=== PATIENT | male | born 1960 | race Caucasian/White ===

== ENCOUNTER 2021-08-03 14:51 | Inpatient (IN) ==
[2021-08-03 15:43] LABS: Basophils % 0.6 %; Eosinophils # 0.1 K/mcL (0.0-0.6); Hematocrit 32.5 % (37.5-50.1); Hemoglobin 10.9 g/dL (12.9-16.9); Immature Granulocytes % 0.4 % (0-4); Lymphocytes # 0.8 K/mcL (0.6-4.6); Lymphocytes % 11.9 %; Mean Corpuscular HGB Conc 33.5 g/dL (31.6-35.5); Mean Corpuscular Hemoglobin 35.2 pg (28.0-33.3); Mean Corpuscular Volume 104.8 fL (83.0-100.0); Mean Platelet Volume 11.2 fL (9.4-12.4); Monocytes # 0.9 K/mcL (0.0-1.3); Monocytes % 12.6 %; Platelet Count 122 K/mcL (140-400); Red Cell Distribution Width 14.4 % (11.5-14.5); Segmented Neutrophils % 73.5 %; White Blood Count 6.8 K/mcL (4.3-11.1)
[2021-08-03 15:55] LABS: INR 1.4; Prothrombin Time 15.8 Seconds (9.4-12.1)
[2021-08-03 15:57] LABS: Activated Partial Thrombo Time 31.7 Seconds (26.0-36.0)
[2021-08-03 16:21] LABS: Troponin I < 0.03 ng/mL (< 0.04)
[2021-08-03 16:25] LABS: Influenza A PCR Negative (Negative); Influenza B PCR Negative (Negative); Resp. Syncytial Virus PCR Negative (Negative); SARS-CoV-2 by PCR (In House) Negative (Negative)
[2021-08-03 16:35] LABS: Alanine Aminotransferase 46 Units/L (7-52); Albumin/Globulin Ratio 0.9 (1.1-2.2); Alkaline Phosphatase 149 Units/L (34-104); Aspartate Amino Transferase 73 Units/L (13-39); BUN/Creatinine Ratio 18 (6-26); Bilirubin,Direct 0.7 mg/dL (0.0-0.2); Bilirubin,Indirect 1.7 mg/dL (0.0-1.0); Bilirubin,Total 2.4 mg/dL (0.3-1.0); Blood Urea Nitrogen 14 mg/dL (8-23); Calcium 8.4 mg/dL (8.6-10.3); Carbon Dioxide 30 mEq/L (23-29); Chloride 104 mEq/L (98-107); Globulin 3.3 g/dL (2.4-3.5); Glucose 104 mg/dL (70-105); Osmolality,Calculated 287 (280-300); Potassium 4.2 mEq/L (3.5-5.1); Sodium 138 mEq/L (136-145); Total Protein 6.3 g/dL (6.4-8.9); eGFR For African Americans > 60 (> 60); eGFR For Non-African Americans > 60 (> 60)
[2021-08-03 16:42] LABS: Lipase 65 Units/L (11-82)
[2021-08-03] MEDS ORDERED: Isovue-370 500 ML BOTTLE IVP ONE (16:50)
[2021-08-03] MEDS ORDERED: Morphine Sulfate 2 MG/ML SYRINGE IVP ONE (17:09)
[2021-08-03] MEDS ORDERED: Albuterol 2.5 MG/3 ML NEBULIZER IH ONE (18:02)
[2021-08-03] MEDS ORDERED: cefTRIAXone 1,000 MG in Water for inj. (sterile) 10 ML IVP ONE (18:26)
[2021-08-03] MEDS ORDERED: Naloxone 0.4 MG/ML INJ IVP PRN (20:22)
[2021-08-03] MEDS ORDERED: Ondansetron 4 MG/2 ML VIAL IVP PRN (20:28)
[2021-08-03] MEDS ORDERED: Melatonin 3 MG TABLET PO PRN (20:28)
[2021-08-03] MEDS ORDERED: Furosemide 40 MG/4 ML VIAL IVP ONE (22:29)
[2021-08-03] MEDS ORDERED: Albumin 25% 25gram/100mL 25 GM/100 ML IV.SOLN IVPB ONE (22:29)
[2021-08-03] MEDS ORDERED: *HR* LORazepam 2 MG/ML VIAL IVP PRN (22:48)
[2021-08-03] MEDS: cefTRIAXone 2,000 MG in 0.9 % Sodium Chloride Mini Bag 100 ML IVPB SCH (22:57)
[2021-08-03] MEDS ORDERED: Perflutren Lipid Microsphere 1.3 ML in 0.9 % Sodium Chloride 8.7 ML IVP PRN (23:19)
[2021-08-04 02:52] LABS: Basophils # 0.1 K/mcL (0.0-0.2); Basophils % 0.8 %; Eosinophils # 0.1 K/mcL (0.0-0.6); Eosinophils % 1.8 %; Hematocrit 27.1 % (37.5-50.1); Immature Granulocytes % 0.2 % (0-4); Lymphocytes # 0.8 K/mcL (0.6-4.6); Lymphocytes % 13.6 %; Mean Corpuscular HGB Conc 33.6 g/dL (31.6-35.5); Mean Corpuscular Volume 104.2 fL (83.0-100.0); Mean Platelet Volume 11.3 fL (9.4-12.4); Monocytes # 1.1 K/mcL (0.0-1.3); Monocytes % 18.2 %; Platelet Count 100 K/mcL (140-400); Red Cell Distribution Width 14.5 % (11.5-14.5); Segmented Neutrophils % 65.4 %
[2021-08-04 02:54] LABS: Hemoglobin 9.1 g/dL (12.9-16.9); Neutrophils # 3.9 K/mcL (1.6-8.9)
[2021-08-04 03:04] LABS: BUN/Creatinine Ratio 17 (6-26); Blood Urea Nitrogen 14 mg/dL (8-23); Calcium 8.4 mg/dL (8.6-10.3); Carbon Dioxide 28 mEq/L (23-29); Chloride 103 mEq/L (98-107); Glucose 126 mg/dL (70-105); Osmolality,Calculated 282 (280-300); Potassium 3.9 mEq/L (3.5-5.1); Sodium 135 mEq/L (136-145); eGFR For African Americans > 60 (> 60); eGFR For Non-African Americans > 60 (> 60)
[2021-08-04] MEDS: cefTRIAXone 2,000 MG in 0.9 % Sodium Chloride Mini Bag 100 ML IVPB SCH (08:13)
[2021-08-04 09:44] LABS: Alanine Aminotransferase 33 Units/L (7-52); Albumin/Globulin Ratio 1.1 (1.1-2.2); Alkaline Phosphatase 116 Units/L (34-104); Aspartate Amino Transferase 56 Units/L (13-39); Bilirubin,Direct 0.7 mg/dL (0.0-0.2); Bilirubin,Indirect 1.4 mg/dL (0.0-1.0); Bilirubin,Total 2.1 mg/dL (0.3-1.0); Globulin 2.7 g/dL (2.4-3.5); Total Protein 5.7 g/dL (6.4-8.9)
[2021-08-04] MEDS ORDERED: Gadolinium Contrast Agent (WT Based) IV PRN (12:17)
[2021-08-04] MEDS ORDERED: *HR* LORazepam 2 MG/ML VIAL IVP PRN ×2 (14:32)
[2021-08-04 15:26] LABS: Source of Body Fluid Ascites
[2021-08-04 17:04] LABS: LDH,Peritoneal Fluid 54 Units/L (No Ref Range); Total Protein,Peritoneal Fluid < 2.0 g/dL
[2021-08-04 17:18] LABS: Appearance of Body Fluid Clear (Clear); Volume of Body Fluid 60 mL
[2021-08-04] MEDS ORDERED: Thiamine (B-1) 100 MG, Folic Acid 1 MG, MVI, adult with vitamin K 10 ML in 0.9 % Sodi... IVPB SCH (18:00)
[2021-08-05 05:47] LABS: Basophils % 0.7 %; Mean Platelet Volume 11.4 fL (9.4-12.4)
[2021-08-05 05:49] LABS: Eosinophils # 0.1 K/mcL (0.0-0.6); Eosinophils % 2.4 %; Hemoglobin 9.7 g/dL (12.9-16.9); Immature Granulocytes % 0.3 % (0-4); Immature Platelets 4.8 % (1.1-6.1); Lymphocytes # 0.9 K/mcL (0.6-4.6); Lymphocytes % 15.5 %; Mean Corpuscular HGB Conc 33.4 g/dL (31.6-35.5); Mean Corpuscular Hemoglobin 35.4 pg (28.0-33.3); Mean Corpuscular Volume 105.8 fL (83.0-100.0); Monocytes # 0.9 K/mcL (0.0-1.3); Monocytes % 15.7 %; Neutrophils # 3.9 K/mcL (1.6-8.9); Red Blood Count 2.74 M/mcL (4.19-5.50); Red Cell Distribution Width 14.1 % (11.5-14.5); Segmented Neutrophils % 65.4 %; White Blood Count 5.9 K/mcL (4.3-11.1)
[2021-08-05 05:58] LABS: Platelet Count 95 K/mcL (140-400)
[2021-08-05 06:14] LABS: Alanine Aminotransferase 34 Units/L (7-52); Albumin 2.8 g/dL (3.5-5.7); Alkaline Phosphatase 121 Units/L (34-104); Aspartate Amino Transferase 67 Units/L (13-39); BUN/Creatinine Ratio 18 (6-26); Bilirubin,Direct 0.6 mg/dL (0.0-0.2); Bilirubin,Indirect 1.2 mg/dL (0.0-1.0); Bilirubin,Total 1.8 mg/dL (0.3-1.0); Blood Urea Nitrogen 15 mg/dL (8-23); Calcium 8.2 mg/dL (8.6-10.3); Carbon Dioxide 25 mEq/L (23-29); Chloride 102 mEq/L (98-107); Globulin 2.9 g/dL (2.4-3.5); Glucose 100 mg/dL (70-105); Osmolality,Calculated 277 (280-300); Potassium 4.1 mEq/L (3.5-5.1); Sodium 133 mEq/L (136-145); Total Protein 5.7 g/dL (6.4-8.9); eGFR For African Americans > 60 (> 60); eGFR For Non-African Americans > 60 (> 60)
[2021-08-05] MEDS ORDERED: Furosemide 40 MG/4 ML VIAL IVP ONE ×2 (09:19→16:00)
[2021-08-05] MEDS: Albumin 25% 25gram/100mL 25 GM/100 ML IV.SOLN IVPB SCH ×2 (10:50→17:02)
[2021-08-05] MEDS: cefTRIAXone 2,000 MG in 0.9 % Sodium Chloride Mini Bag 100 ML IVPB SCH (11:02)
[2021-08-05] MEDS: Tiotropium 10 INH DOSE IH SCH (11:25)
[2021-08-05] MEDS: Budesonide/Formoterol 160/4.5 1 PUFF INH IH SCH (22:28)
[2021-08-06 02:23] LABS: Hematocrit 27.9 % (37.5-50.1); Hemoglobin 9.4 g/dL (12.9-16.9); Mean Corpuscular HGB Conc 33.7 g/dL (31.6-35.5); Mean Corpuscular Hemoglobin 35.1 pg (28.0-33.3); Mean Corpuscular Volume 104.1 fL (83.0-100.0); Mean Platelet Volume 11.4 fL (9.4-12.4); Platelet Count 74 K/mcL (140-400); Red Blood Count 2.68 M/mcL (4.19-5.50); Red Cell Distribution Width 13.8 % (11.5-14.5)
[2021-08-06 02:30] LABS: BUN/Creatinine Ratio 21 (6-26); Blood Urea Nitrogen 16 mg/dL (8-23); Calcium 8.4 mg/dL (8.6-10.3); Carbon Dioxide 28 mEq/L (23-29); Chloride 98 mEq/L (98-107); Glucose 110 mg/dL (70-105); Osmolality,Calculated 268 (280-300); Potassium 3.8 mEq/L (3.5-5.1); Sodium 128 mEq/L (136-145); eGFR For African Americans > 60 (> 60); eGFR For Non-African Americans > 60 (> 60)
[2021-08-06] MEDS: Albumin 25% 25gram/100mL 25 GM/100 ML IV.SOLN IVPB SCH ×3 (06:52→16:41)
[2021-08-06] MEDS: Budesonide/Formoterol 160/4.5 1 PUFF INH IH SCH ×2 (08:17→20:31)
[2021-08-06] MEDS: Tiotropium 10 INH DOSE IH SCH (08:19)
[2021-08-06] MEDS: polyethylene glycoL 3350 17 GM POWD.PACK PO SCH (16:43)
[2021-08-06 21:45] LABS: Fluid Source for Albumin ASCITES
[2021-08-07] MEDS: Albumin 25% 25gram/100mL 25 GM/100 ML IV.SOLN IVPB SCH ×2 (00:32→08:38)
[2021-08-07 02:07] LABS: Immature Granulocytes % 0.2 % (0-4)
[2021-08-07 02:10] LABS: BUN/Creatinine Ratio 20 (6-26); Basophils % 0.9 %; Blood Urea Nitrogen 15 mg/dL (8-23); Calcium 8.4 mg/dL (8.6-10.3); Carbon Dioxide 26 mEq/L (23-29); Chloride 100 mEq/L (98-107); Eosinophils # 0.1 K/mcL (0.0-0.6); Eosinophils % 2.1 %; Glucose 128 mg/dL (70-105); Hematocrit 26.7 % (37.5-50.1); Hemoglobin 8.8 g/dL (12.9-16.9); Immature Platelets 5.4 % (1.1-6.1); Lymphocytes # 0.7 K/mcL (0.6-4.6); Lymphocytes % 15.4 %; Mean Corpuscular Hemoglobin 34.8 pg (28.0-33.3); Mean Corpuscular Volume 105.5 fL (83.0-100.0); Mean Platelet Volume 11.9 fL (9.4-12.4); Monocytes % 17.7 %; Neutrophils # 2.7 K/mcL (1.6-8.9); Osmolality,Calculated 276 (280-300); Potassium 3.9 mEq/L (3.5-5.1); Red Blood Count 2.53 M/mcL (4.19-5.50); Red Cell Distribution Width 13.9 % (11.5-14.5); Segmented Neutrophils % 63.7 %; Sodium 132 mEq/L (136-145); White Blood Count 4.2 K/mcL (4.3-11.1); eGFR For African Americans > 60 (> 60); eGFR For Non-African Americans > 60 (> 60)
[2021-08-07 02:13] LABS: Monocytes # 0.7 K/mcL (0.0-1.3); Platelet Count 61 K/mcL (140-400)
[2021-08-07] MEDS: polyethylene glycoL 3350 17 GM POWD.PACK PO SCH (08:39)
[2021-08-07] MEDS: Tiotropium 10 INH DOSE IH SCH (09:10)
[2021-08-07] MEDS: Budesonide/Formoterol 160/4.5 1 PUFF INH IH SCH (09:10)
[2021-08-07 09:12] VITALS: O2SAT 97
[2021-08-07 11:18] VITALS: BP 129/80; PULSE 89; TEMP 99.4
== END 2021-08-07 12:25 | disposition home or self-care (01) | DRG 433 ==
LOC: EMEROOARM 14:51 → 3ANU 14:51 → SUATTDRO 08-05 12:24
PROVIDERS: ADMIT Internal Medicine; ATTEND Internal Medicine

== ENCOUNTER 2021-10-08 11:01 | Inpatient (IN) ==
[2021-10-08 11:34] LABS: Basophils # 0.1 K/mcL (0.0-0.2); Basophils % 0.7 %; Eosinophils # 0.1 K/mcL (0.0-0.6); Eosinophils % 0.8 %; Hematocrit 31.7 % (37.5-50.1); Hemoglobin 10.6 g/dL (12.9-16.9); Immature Granulocytes % 0.3 % (0-4); Lymphocytes # 0.9 K/mcL (0.6-4.6); Lymphocytes % 9.8 %; Mean Corpuscular HGB Conc 33.4 g/dL (31.6-35.5); Mean Corpuscular Hemoglobin 34.5 pg (28.0-33.3); Mean Corpuscular Volume 103.3 fL (83.0-100.0); Mean Platelet Volume 10.3 fL (9.4-12.4); Monocytes # 1.1 K/mcL (0.0-1.3); Monocytes % 11.9 %; Platelet Count 146 K/mcL (140-400); Red Blood Count 3.07 M/mcL (4.19-5.50); Red Cell Distribution Width 18.2 % (11.5-14.5); Segmented Neutrophils % 76.5 %; White Blood Count 9.2 K/mcL (4.3-11.1)
[2021-10-08 11:59] LABS: Alanine Aminotransferase 64 Units/L (7-52); Albumin 2.9 g/dL (3.5-5.7); Albumin/Globulin Ratio 0.7 (1.1-2.2); Alkaline Phosphatase 209 Units/L (34-104); Aspartate Amino Transferase 164 Units/L (13-39); BUN/Creatinine Ratio 15 (6-26); Bilirubin,Direct 1.7 mg/dL (0.0-0.2); Bilirubin,Indirect 2.5 mg/dL (0.0-1.0); Bilirubin,Total 4.2 mg/dL (0.3-1.0); Blood Urea Nitrogen 12 mg/dL (8-23); Calcium 8.6 mg/dL (8.6-10.3); Carbon Dioxide 25 mEq/L (23-29); Chloride 99 mEq/L (98-107); Globulin 4.1 g/dL (2.4-3.5); Glucose 111 mg/dL (70-105); Lipase 27 Units/L (11-82); Osmolality,Calculated 270 (280-300); Potassium 4.4 mEq/L (3.5-5.1); Sodium 130 mEq/L (136-145); Troponin I 0.03 ng/mL (< 0.04); eGFR For African Americans > 60 (> 60); eGFR For Non-African Americans > 60 (> 60)
[2021-10-08] MEDS ORDERED: Ondansetron ODT 4 MG TAB.RAPDIS SL PRN (14:09)
[2021-10-08] MEDS ORDERED: Naloxone 0.4 MG/ML INJ IVP PRN (14:09)
[2021-10-08] MEDS ORDERED: Melatonin 3 MG TABLET PO PRN (14:09)
[2021-10-08] MEDS ORDERED: Ibuprofen 400 MG TABLET PO PRN (16:02)
[2021-10-08] MEDS: Albumin 25% 25gram/100mL 25 GM/100 ML IV.SOLN IVC SCH ×4 (16:47→22:42)
[2021-10-08 17:47] LABS: Ethanol < 10 mg/dL (Less than 10)
[2021-10-08] MEDS ORDERED: *HR* Labetalol 20 MG/4 ML SYRINGE IVP PRN (20:12)
[2021-10-08] MEDS ORDERED: *HR* HYDROmorphone 2 MG TABLET PO ONE (20:30)
[2021-10-08] MEDS: *HR* Heparin 5,000 UNIT/ML VIAL SQ SCH (20:53)
[2021-10-08] MEDS: Budesonide/Formoterol 160/4.5 1 PUFF INH IH SCH (20:56)
[2021-10-09 02:46] LABS: Alanine Aminotransferase 44 Units/L (7-52); Albumin 3.3 g/dL (3.5-5.7); Albumin/Globulin Ratio 1.2 (1.1-2.2); Alkaline Phosphatase 151 Units/L (34-104); Aspartate Amino Transferase 117 Units/L (13-39); BUN/Creatinine Ratio 18 (6-26); Bilirubin,Total 3.6 mg/dL (0.3-1.0); Blood Urea Nitrogen 14 mg/dL (8-23); Calcium 8.5 mg/dL (8.6-10.3); Carbon Dioxide 27 mEq/L (23-29); Chloride 99 mEq/L (98-107); Globulin 2.7 g/dL (2.4-3.5); Glucose 104 mg/dL (70-105); Osmolality,Calculated 273 (280-300); Potassium 4.5 mEq/L (3.5-5.1); Sodium 131 mEq/L (136-145); eGFR For African Americans > 60 (> 60); eGFR For Non-African Americans > 60 (> 60)
[2021-10-09] MEDS: *HR* Heparin 5,000 UNIT/ML VIAL SQ SCH ×3 (05:23→20:38)
[2021-10-09] MEDS: Budesonide/Formoterol 160/4.5 1 PUFF INH IH SCH ×2 (07:28→20:08)
[2021-10-09] MEDS ORDERED: Tiotropium 10 INH DOSE IH ONE (07:31)
[2021-10-09] MEDS: Tiotropium 10 INH DOSE IH SCH (07:32)
[2021-10-09] MEDS ORDERED: Furosemide 40 MG/4 ML VIAL IVP SCH (09:00)
[2021-10-09] MEDS ORDERED: Acetaminophen 325 MG TABLET PO PRN (09:30)
[2021-10-09] MEDS: Ketorolac 30 MG/ML VIAL IM PRN ×3 (09:43→22:36)
[2021-10-09] MEDS: Furosemide 80 MG in 0.9 % Sodium Chloride 50 ML IV SCH (20:38)
[2021-10-10 01:14] LABS: BUN/Creatinine Ratio 17 (6-26); Blood Urea Nitrogen 20 mg/dL (8-23); Calcium 8.1 mg/dL (8.6-10.3); Carbon Dioxide 25 mEq/L (23-29); Chloride 97 mEq/L (98-107); Glucose 116 mg/dL (70-105); Osmolality,Calculated 272 (280-300); Sodium 129 mEq/L (136-145); eGFR For African Americans > 60 (> 60); eGFR For Non-African Americans > 60 (> 60)
[2021-10-10] MEDS: Ketorolac 30 MG/ML VIAL IM PRN ×3 (04:38→16:44)
[2021-10-10] MEDS: *HR* Heparin 5,000 UNIT/ML VIAL SQ SCH ×3 (04:39→19:49)
[2021-10-10] MEDS: Budesonide/Formoterol 160/4.5 1 PUFF INH IH SCH ×2 (07:51→20:32)
[2021-10-10] MEDS: Tiotropium 10 INH DOSE IH SCH (07:51)
[2021-10-10] MEDS: Furosemide 80 MG in 0.9 % Sodium Chloride 50 ML IV SCH ×2 (09:18→19:48)
[2021-10-10] MEDS ORDERED: Ondansetron 4 MG/2 ML VIAL IVP PRN (09:23)
[2021-10-10 20:56] LABS: Basophils % 0.3 %; Eosinophils # 0.1 K/mcL (0.0-0.6); Eosinophils % 0.8 %; Hemoglobin 9.9 g/dL (12.9-16.9); Immature Granulocytes % 0.4 % (0-4); Lymphocytes # 1.1 K/mcL (0.6-4.6); Lymphocytes % 9.6 %; Mean Corpuscular HGB Conc 34.1 g/dL (31.6-35.5); Mean Corpuscular Hemoglobin 34.5 pg (28.0-33.3); Mean Platelet Volume 10.5 fL (9.4-12.4); Monocytes # 1.6 K/mcL (0.0-1.3); Neutrophils # 8.5 K/mcL (1.6-8.9); Platelet Count 132 K/mcL (140-400); Red Blood Count 2.87 M/mcL (4.19-5.50); Red Cell Distribution Width 18.4 % (11.5-14.5); Segmented Neutrophils % 74.9 %; White Blood Count 11.4 K/mcL (4.3-11.1)
[2021-10-10 21:20] LABS: Albumin 2.9 g/dL (3.5-5.7); Albumin/Globulin Ratio 1.1 (1.1-2.2); Bilirubin,Direct 1.6 mg/dL (0.0-0.2); Bilirubin,Indirect 2.5 mg/dL (0.0-1.0); Bilirubin,Total 4.1 mg/dL (0.3-1.0); Globulin 2.7 g/dL (2.4-3.5); Total Protein 5.6 g/dL (6.4-8.9)
[2021-10-10] MEDS ORDERED: Lactulose Oral Soln 20 GM/30 ML UDC PO ONE (21:29)
[2021-10-10] MEDS ORDERED: Lactulose 200 GM, Sodium Chloride IRRigation 700 ML RC ONE (22:21)
[2021-10-10 22:39] LABS: Bacteria,Urine Few per hpf (None-Few); Bilirubin,Urine Negative (Negative); Blood,Urine Large (Negative); Clarity,Urine Turbid (Clear); Color,Urine Light-Orange (Yellow); Glucose,Urine (UA) Normal (Normal); Hyaline Casts,Urine Few per lpf (None Seen); Ketones,Urine Negative (Negative); Leukocyte Esterase,Urine Large (Negative); Mucus,Urine Few per lpf (None-Few); Nitrite,Urine Negative (Negative); Oval Fat Bodies,Urine Present per hpf (None Seen); Protein,Urine 30 mg/dL (Neg-Trace); RBC,Urine TNTC per hpf (0-3); Renal Epithelial Cells,Urine Few per hpf (None-Few); Specific Gravity,Urine 1.008 (1.010-1.025); Squamous Epithelial Cell,Urine Few per hpf (None-Few); Transitional Epi Cells,Urine Few per hpf (None-Few); Urobilinogen,Urine Normal (Normal); WBC,Urine TNTC per hpf (0-3)
[2021-10-11] MEDS ORDERED: Albumin 25% 25gram/100mL 25 GM/100 ML IV.SOLN IVPB ONE ×2 (00:49→18:07)
[2021-10-11] MEDS ORDERED: *HR* LORazepam 2 MG/ML VIAL IVP ONE (00:51)
[2021-10-11] MEDS: cefTRIAXone 1,000 MG in 0.9 % Sodium Chloride 10 ML IVPB SCH ×2 (01:08→13:16)
[2021-10-11] MEDS ORDERED: Dexmedetomidine HCl 400 MCG/100 ML MLS IVC SCH ×2 (01:45→02:00)
[2021-10-11] MEDS ORDERED: Lactulose 200 GM, Sodium Chloride IRRigation 700 ML RC ONE ×2 (02:00→23:00)
[2021-10-11] MEDS: Dexmedetomidine HCl 400 MCG/100 ML MLS IVC SCH ×6 (02:05→23:14)
[2021-10-11 02:41] LABS: Potassium 4.5 mEq/L (3.5-5.1)
[2021-10-11 02:42] LABS: Calcium 8.5 mg/dL (8.6-10.3)
[2021-10-11 05:13] LABS: Lymphocytes % 8.7 %; Mean Corpuscular HGB Conc 35.4 g/dL (31.6-35.5); Red Cell Distribution Width 18.5 % (11.5-14.5)
[2021-10-11 05:15] LABS: Basophils % 0.1 %; Eosinophils % 0.1 %; Hematocrit 24.3 % (37.5-50.1); Hemoglobin 8.6 g/dL (12.9-16.9); Immature Granulocytes % 0.4 % (0-4); Immature Platelets 3.3 % (1.1-6.1); Lymphocytes # 0.6 K/mcL (0.6-4.6); Mean Corpuscular Volume 101.7 fL (83.0-100.0); Mean Platelet Volume 10.8 fL (9.4-12.4); Monocytes # 0.9 K/mcL (0.0-1.3); Monocytes % 13.6 %; Red Blood Count 2.39 M/mcL (4.19-5.50); Segmented Neutrophils % 77.1 %; White Blood Count 6.7 K/mcL (4.3-11.1)
[2021-10-11 05:22] LABS: INR 2.4; Prothrombin Time 26.4 Seconds (9.4-12.1)
[2021-10-11 05:23] LABS: Neutrophils # 5.2 K/mcL (1.6-8.9); Platelet Count 94 K/mcL (140-400)
[2021-10-11] MEDS: *HR* Heparin 5,000 UNIT/ML VIAL SQ SCH ×3 (06:13→23:15)
[2021-10-11] MEDS ORDERED: Albumin 25% 25gram/100mL 25 GM/100 ML IV.SOLN IVPB SCH (08:00)
[2021-10-11] MEDS: Tiotropium 10 INH DOSE IH SCH (08:21)
[2021-10-11] MEDS: Budesonide/Formoterol 160/4.5 1 PUFF INH IH SCH ×2 (08:21→20:02)
[2021-10-11 09:05] LABS: Hematocrit 27.5 % (37.5-50.1); Hemoglobin 9.7 g/dL (12.9-16.9); Mean Corpuscular HGB Conc 35.3 g/dL (31.6-35.5); Mean Corpuscular Hemoglobin 35.3 pg (28.0-33.3); Mean Platelet Volume 10.9 fL (9.4-12.4); Platelet Count 105 K/mcL (140-400); Red Blood Count 2.75 M/mcL (4.19-5.50); Red Cell Distribution Width 18.6 % (11.5-14.5); White Blood Count 6.6 K/mcL (4.3-11.1)
[2021-10-11] MEDS ORDERED: 0.9 % Sodium Chloride 500 ML ONE (09:53)
[2021-10-11] MEDS ORDERED: 0.9 % Sodium Chloride 500 ML IVC ONE (09:53)
[2021-10-11] MEDS: Pantoprazole 40 MG VIAL IVP SCH (09:56)
[2021-10-11] MEDS: Furosemide 80 MG in 0.9 % Sodium Chloride 50 ML IV SCH (10:31)
[2021-10-11] MEDS: Lactulose Oral Soln 20 GM/30 ML UDC PO SCH ×3 (10:32→20:25)
[2021-10-11] MEDS: 0.9 % Sodium Chloride 1,000 ML IVC SCH ×2 (17:21→23:41)
[2021-10-11] MEDS: Norepinephrine 4 MG/254 ML IV.SOLN IVC SCH (17:48)
[2021-10-11 18:21] LABS: RBC,Peritoneal Fluid < 2000 RBC/mcL
[2021-10-11 18:24] LABS: Appearance of Peritoneal Fl CLEAR (Clear)
[2021-10-11 18:30] LABS: Glucose,Peritoneal Fluid 107 mg/dL (No Ref Range); LDH,Peritoneal Fluid 143 Units/L (No Ref Range); Total Protein,Peritoneal Fluid < 2.0 g/dL
[2021-10-11 19:39] LABS: Basophils,Peritoneal Fluid 0 %
[2021-10-12] MEDS: Dexmedetomidine HCl 400 MCG/100 ML MLS IVC SCH ×5 (01:52→22:52)
[2021-10-12] MEDS: Norepinephrine 4 MG/254 ML IV.SOLN IVC SCH ×3 (01:52→17:12)
[2021-10-12] MEDS: cefTRIAXone 1,000 MG in 0.9 % Sodium Chloride 10 ML IVPB SCH ×2 (01:56→12:13)
[2021-10-12] MEDS: Albumin 25% 25gram/100mL 25 GM/100 ML IV.SOLN IVPB SCH ×2 (03:08→08:25)
[2021-10-12 06:04] LABS: Hematocrit 29.8 % (37.5-50.1); Hemoglobin 10.1 g/dL (12.9-16.9); Mean Corpuscular HGB Conc 33.9 g/dL (31.6-35.5); Mean Corpuscular Hemoglobin 34.8 pg (28.0-33.3); Mean Corpuscular Volume 102.8 fL (83.0-100.0); Mean Platelet Volume 10.5 fL (9.4-12.4); Platelet Count 111 K/mcL (140-400); Red Cell Distribution Width 18.9 % (11.5-14.5); White Blood Count 9.5 K/mcL (4.3-11.1)
[2021-10-12 06:22] LABS: INR 2.4; Prothrombin Time 26.3 Seconds (9.4-12.1)
[2021-10-12 06:25] LABS: Activated Partial Thrombo Time 47.7 Seconds (26.0-36.0)
[2021-10-12 07:14] LABS: Lymphocytes # 0.8 K/mcL (0.6-4.6); Monocytes # 0.6 K/mcL (0.0-1.3); Neutrophils # 8.2 K/mcL (1.6-8.9); Platelet Estimate Decreased (Normal)
[2021-10-12] MEDS ORDERED: *HR* Phytonadione 10 MG/ML AMPUL SQ ONE (08:14)
[2021-10-12] MEDS: Budesonide/Formoterol 160/4.5 1 PUFF INH IH SCH ×2 (08:19→19:42)
[2021-10-12] MEDS: Tiotropium 10 INH DOSE IH SCH (08:20)
[2021-10-12] MEDS: Pantoprazole 40 MG VIAL IVP SCH (08:30)
[2021-10-12] MEDS: Lactulose Oral Soln 20 GM/30 ML UDC PO SCH ×3 (08:30→20:32)
[2021-10-12] MEDS: *HR* Heparin 5,000 UNIT/ML VIAL SQ SCH ×3 (08:30→20:31)
[2021-10-12 10:05] LABS: Albumin 3.4 g/dL (3.5-5.7); Albumin/Globulin Ratio 1.4 (1.1-2.2); Bilirubin,Total 4.1 mg/dL (0.3-1.0); Calcium 8.3 mg/dL (8.6-10.3); Globulin 2.5 g/dL (2.4-3.5); Potassium 4.1 mEq/L (3.5-5.1); Total Protein 5.9 g/dL (6.4-8.9)
[2021-10-12] MEDS ORDERED: 0.9 % Sodium Chloride 500 ML IVC ONE (17:33)
[2021-10-13] MEDS ORDERED: Haloperidol Lactate 5 MG/ML VIAL IVP ONE (00:18)
[2021-10-13] MEDS: Pantoprazole 40 MG in 0.9 % Sodium Chloride Mini Bag 100 ML IVC SCH ×3 (01:13→11:06)
[2021-10-13] MEDS: Dexmedetomidine HCl 400 MCG/100 ML MLS IVC SCH ×5 (01:16→23:17)
[2021-10-13] MEDS: cefTRIAXone 1,000 MG in 0.9 % Sodium Chloride 10 ML IVPB SCH (01:17)
[2021-10-13] MEDS ORDERED: *HR* LORazepam 2 MG/ML VIAL IVP PRN ×3 (04:39)
[2021-10-13 05:08] LABS: Bilirubin,Total 2.9 mg/dL (0.3-1.0); Calcium 8.3 mg/dL (8.6-10.3); Potassium 4.2 mEq/L (3.5-5.1)
[2021-10-13] MEDS: *HR* Heparin 5,000 UNIT/ML VIAL SQ SCH ×3 (05:49→20:52)
[2021-10-13] MEDS: Tiotropium 10 INH DOSE IH SCH (07:32)
[2021-10-13] MEDS: Budesonide/Formoterol 160/4.5 1 PUFF INH IH SCH ×2 (07:32→20:53)
[2021-10-13] MEDS: Lactulose Oral Soln 20 GM/30 ML UDC PO SCH (08:28)
[2021-10-13] MEDS: Thiamine (B-1) 200 MG in 0.9 % Sodium Chloride 50 ML IVPB SCH (08:28)
[2021-10-13] MEDS: Folic Acid 1 MG in 0.9 % Sodium Chloride 50 ML IVPB SCH (08:28)
[2021-10-13] MEDS: Norepinephrine 4 MG/254 ML IV.SOLN IVC SCH ×3 (08:29→19:18)
[2021-10-13 10:12] LABS: Basophils % 0.1 %; Eosinophils % 0.5 %; Hematocrit 29.5 % (37.5-50.1); Immature Granulocytes % 0.7 % (0-4); Lymphocytes # 0.8 K/mcL (0.6-4.6); Lymphocytes % 10.4 %; Mean Corpuscular HGB Conc 33.9 g/dL (31.6-35.5); Mean Corpuscular Hemoglobin 34.5 pg (28.0-33.3); Mean Corpuscular Volume 101.7 fL (83.0-100.0); Monocytes # 1.2 K/mcL (0.0-1.3); Monocytes % 15.9 %; Neutrophils # 5.5 K/mcL (1.6-8.9); Platelet Count 113 K/mcL (140-400); Red Cell Distribution Width 18.6 % (11.5-14.5); Segmented Neutrophils % 72.4 %; White Blood Count 7.6 K/mcL (4.3-11.1)
[2021-10-13 10:33] LABS: Albumin 3.2 g/dL (3.5-5.7); Albumin/Globulin Ratio 1.2 (1.1-2.2); Bilirubin,Direct 1.4 mg/dL (0.0-0.2); Bilirubin,Indirect 1.4 mg/dL (0.0-1.0); Bilirubin,Total 2.8 mg/dL (0.3-1.0); Calcium 8.3 mg/dL (8.6-10.3); Globulin 2.7 g/dL (2.4-3.5); Potassium 4.2 mEq/L (3.5-5.1); Total Protein 5.9 g/dL (6.4-8.9)
[2021-10-13] MEDS: Cefepime HCl 2,000 MG in 0.9 % Sodium Chloride 10 ML IVP SCH ×2 (11:06→20:52)
[2021-10-13] MEDS: Albumin Human 5% 12.5 GM/250 ML IV.SOLN IVC SCH ×2 (13:12→17:09)
[2021-10-13] MEDS: MetroNIDAZOLE 500 MG/100 ML 500 MG/100 ML BAG IVPB SCH ×2 (15:48→23:16)
[2021-10-13 16:15] LABS: INR 1.9; Prothrombin Time 21.5 Seconds (9.4-12.1)
[2021-10-13] MEDS: Pantoprazole 40 MG VIAL IVP SCH (17:10)
[2021-10-13 23:46] LABS: Fluid Source for Albumin PERITONEAL FL
[2021-10-14 02:54] LABS: Calcium 8.6 mg/dL (8.6-10.3); Potassium 3.3 mEq/L (3.5-5.1)
[2021-10-14] MEDS: Pantoprazole 40 MG VIAL IVP SCH ×2 (04:40→17:13)
[2021-10-14] MEDS: *HR* Heparin 5,000 UNIT/ML VIAL SQ SCH ×3 (04:41→21:40)
[2021-10-14] MEDS: Norepinephrine 4 MG/254 ML IV.SOLN IVC SCH ×3 (04:41→21:41)
[2021-10-14 04:47] LABS: Fluid Source for Triglycerides PERITONEAL FL
[2021-10-14 05:12] LABS: Nucleated Red Blood Cells 0.2 /100 WBC (0)
[2021-10-14 05:14] LABS: Hematocrit 27.7 % (37.5-50.1); Hemoglobin 9.2 g/dL (12.9-16.9); Immature Platelets 5.1 % (1.1-6.1); Mean Corpuscular HGB Conc 33.2 g/dL (31.6-35.5); Mean Corpuscular Hemoglobin 34.3 pg (28.0-33.3); Mean Corpuscular Volume 103.4 fL (83.0-100.0); Mean Platelet Volume 10.9 fL (9.4-12.4); Red Blood Count 2.68 M/mcL (4.19-5.50); White Blood Count 8.2 K/mcL (4.3-11.1)
[2021-10-14 05:19] LABS: Platelet Count 80 K/mcL (140-400)
[2021-10-14 05:55] LABS: Lymphocytes # 1.2 K/mcL (0.6-4.6); Monocytes # 0.8 K/mcL (0.0-1.3); Neutrophils # 6.2 K/mcL (1.6-8.9)
[2021-10-14] MEDS ORDERED: Potassium Chloride Elixir 20 MEQ/15 ML UDC GTUBE ONE (07:54)
[2021-10-14] MEDS: Folic Acid 1 MG in 0.9 % Sodium Chloride 50 ML IVPB SCH (08:02)
[2021-10-14] MEDS: MetroNIDAZOLE 500 MG/100 ML 500 MG/100 ML BAG IVPB SCH ×3 (08:03→23:14)
[2021-10-14] MEDS: Thiamine (B-1) 200 MG in 0.9 % Sodium Chloride 50 ML IVPB SCH (08:03)
[2021-10-14] MEDS: Budesonide/Formoterol 160/4.5 1 PUFF INH IH SCH ×2 (09:41→20:09)
[2021-10-14] MEDS: Tiotropium 10 INH DOSE IH SCH (09:41)
[2021-10-14] MEDS: Cefepime HCl 1,000 MG in 0.9 % Sodium Chloride 10 ML IVP SCH ×2 (10:26→17:13)
[2021-10-14] MEDS: Dexmedetomidine HCl 400 MCG/100 ML MLS IVC SCH ×3 (10:27→20:34)
[2021-10-14 11:00] LABS: Triglycerides,Body Fluid 31 mg/dL
[2021-10-14 15:48] LABS: RBC,Peritoneal Fluid < 2000 RBC/mcL
[2021-10-14 17:02] LABS: Appearance of Peritoneal Fl CLEAR (Clear); Basophils,Peritoneal Fluid 0 %; Eosinophils,Peritoneal Fluid 0 %
[2021-10-14] MEDS: Lactulose Oral Soln 20 GM/30 ML UDC PO SCH (20:24)
[2021-10-14] MEDS: Docusate Oral Soln 100 MG/10 ML UDC GTUBE SCH (20:37)
[2021-10-15] MEDS: Dexmedetomidine HCl 400 MCG/100 ML MLS IVC SCH ×4 (00:44→15:50)
[2021-10-15 04:33] LABS: Basophils % 0.4 %; Eosinophils % 0.4 %; Hemoglobin 9.8 g/dL (12.9-16.9); Immature Granulocytes % 1.2 % (0-4); Immature Platelets 3.9 % (1.1-6.1); Lymphocytes # 0.8 K/mcL (0.6-4.6); Lymphocytes % 9.5 %; Mean Corpuscular HGB Conc 32.7 g/dL (31.6-35.5); Mean Corpuscular Hemoglobin 34.3 pg (28.0-33.3); Mean Corpuscular Volume 104.9 fL (83.0-100.0); Mean Platelet Volume 10.7 fL (9.4-12.4); Monocytes # 1.3 K/mcL (0.0-1.3); Monocytes % 15.9 %; Red Blood Count 2.86 M/mcL (4.19-5.50); Red Cell Distribution Width 18.6 % (11.5-14.5); Segmented Neutrophils % 72.6 %; White Blood Count 8.2 K/mcL (4.3-11.1)
[2021-10-15 04:33] LABS: VBG Ionized Calcium 1.16 mmol/L (1.15-1.35)
[2021-10-15 04:43] LABS: Platelet Count 82 K/mcL (140-400)
[2021-10-15 04:50] LABS: Alanine Aminotransferase 38 Units/L (7-52); Albumin 2.7 g/dL (3.5-5.7); Albumin/Globulin Ratio 0.9 (1.1-2.2); Alkaline Phosphatase 113 Units/L (34-104); Aspartate Amino Transferase 81 Units/L (13-39); BUN/Creatinine Ratio 44 (6-26); Bilirubin,Total 2.9 mg/dL (0.3-1.0); Blood Urea Nitrogen 54 mg/dL (8-23); Calcium 8.3 mg/dL (8.6-10.3); Carbon Dioxide 25 mEq/L (23-29); Chloride 112 mEq/L (98-107); Globulin 2.9 g/dL (2.4-3.5); Glucose 127 mg/dL (70-105); Magnesium 2.6 mg/dL (1.6-2.6); Osmolality,Calculated 310 (280-300); Phosphorous 2.6 mg/dL (2.7-4.5); Potassium 3.9 mEq/L (3.5-5.1); Sodium 142 mEq/L (136-145); Total Protein 5.6 g/dL (6.4-8.9); eGFR For African Americans > 60 (> 60); eGFR For Non-African Americans 59 (> 60)
[2021-10-15] MEDS: Cefepime HCl 1,000 MG in 0.9 % Sodium Chloride 10 ML IVP SCH (05:16)
[2021-10-15] MEDS: *HR* Heparin 5,000 UNIT/ML VIAL SQ SCH ×3 (05:16→20:10)
[2021-10-15] MEDS: Pantoprazole 40 MG VIAL IVP SCH ×2 (05:17→17:33)
[2021-10-15] MEDS: Lactulose Oral Soln 20 GM/30 ML UDC PO SCH ×2 (07:25→19:16)
[2021-10-15] MEDS: Docusate Oral Soln 100 MG/10 ML UDC GTUBE SCH ×2 (07:25→19:16)
[2021-10-15] MEDS: Budesonide/Formoterol 160/4.5 1 PUFF INH IH SCH ×2 (07:25→23:17)
[2021-10-15] MEDS: Thiamine (B-1) 200 MG in 0.9 % Sodium Chloride 50 ML IVPB SCH (07:26)
[2021-10-15] MEDS: Tiotropium 10 INH DOSE IH SCH (07:26)
[2021-10-15] MEDS: MetroNIDAZOLE 500 MG/100 ML 500 MG/100 ML BAG IVPB SCH ×3 (07:26→23:38)
[2021-10-15] MEDS: Folic Acid 1 MG in 0.9 % Sodium Chloride 50 ML IVPB SCH (07:27)
[2021-10-15] MEDS: Cefepime HCl 2,000 MG in 0.9 % Sodium Chloride 10 ML IVP SCH (17:34)
[2021-10-15] MEDS: Norepinephrine 4 MG/254 ML IV.SOLN IVC SCH (20:10)
[2021-10-16] MEDS: Dexmedetomidine HCl 400 MCG/100 ML MLS IVC SCH ×5 (01:12→20:46)
[2021-10-16] MEDS: *HR* Heparin 5,000 UNIT/ML VIAL SQ SCH ×3 (05:23→19:52)
[2021-10-16] MEDS: Cefepime HCl 2,000 MG in 0.9 % Sodium Chloride 10 ML IVP SCH ×2 (05:23→17:48)
[2021-10-16] MEDS: Pantoprazole 40 MG VIAL IVP SCH ×2 (05:23→17:48)
[2021-10-16 06:51] LABS: HCV Quant Interpretation NOT DETECTED (Not Detected); HCV Quant Log NOT DETECTED log IU/mL
[2021-10-16] MEDS: Budesonide/Formoterol 160/4.5 1 PUFF INH IH SCH ×2 (07:39→20:07)
[2021-10-16] MEDS: Tiotropium 10 INH DOSE IH SCH (07:41)
[2021-10-16] MEDS: Docusate Oral Soln 100 MG/10 ML UDC GTUBE SCH ×2 (08:35→19:51)
[2021-10-16] MEDS: Lactulose Oral Soln 20 GM/30 ML UDC PO SCH ×2 (08:35→19:51)
[2021-10-16] MEDS: MetroNIDAZOLE 500 MG/100 ML 500 MG/100 ML BAG IVPB SCH ×3 (08:35→23:24)
[2021-10-16] MEDS ORDERED: *HR* Dextrose 50 % in Water (Syg) 50 ML SYRINGE IVP PRN (10:33)
[2021-10-16] MEDS ORDERED: Dextrose Gel 15 GM/37.5 ML TUBE PO PRN ×2 (10:33)
[2021-10-16] MEDS ORDERED: D5% in Water 1,000 ML IVC PRN (10:33)
[2021-10-16 10:53] LABS: Basophils % 0.4 %; Segmented Neutrophils % 68.9 %
[2021-10-16 10:54] LABS: Eosinophils % 0.8 %; Hematocrit 32.7 % (37.5-50.1); Hemoglobin 10.7 g/dL (12.9-16.9); Immature Granulocytes % 1.6 % (0-4); Immature Platelets 5.2 % (1.1-6.1); Lymphocytes % 12.2 %; Mean Corpuscular HGB Conc 32.7 g/dL (31.6-35.5); Mean Corpuscular Hemoglobin 34.3 pg (28.0-33.3); Mean Corpuscular Volume 104.8 fL (83.0-100.0); Mean Platelet Volume 10.9 fL (9.4-12.4); Monocytes % 16.1 %; Red Blood Count 3.12 M/mcL (4.19-5.50); Red Cell Distribution Width 18.5 % (11.5-14.5); White Blood Count 10.4 K/mcL (4.3-11.1)
[2021-10-16 10:55] LABS: Eosinophils # 0.1 K/mcL (0.0-0.6); Lymphocytes # 1.3 K/mcL (0.6-4.6); Monocytes # 1.7 K/mcL (0.0-1.3); Neutrophils # 7.2 K/mcL (1.6-8.9); Platelet Count 88 K/mcL (140-400)
[2021-10-16 11:16] LABS: Magnesium 2.7 mg/dL (1.6-2.6); Phosphorous 2.8 mg/dL (2.7-4.5)
[2021-10-16 11:33] LABS: Blood Urea Nitrogen 55 mg/dL (8-23); Calcium 8.6 mg/dL (8.6-10.3); Carbon Dioxide 24 mEq/L (23-29); Chloride 115 mEq/L (98-107); Glucose 114 mg/dL (70-105); Osmolality,Calculated 318 (280-300); Potassium 4.1 mEq/L (3.5-5.1); Sodium 146 mEq/L (136-145)
[2021-10-16] MEDS ORDERED: D10% in Water 500 ML IVC PRN (11:46)
[2021-10-16 13:52] LABS: BUN/Creatinine Ratio 43 (6-26); eGFR For African Americans > 60 (> 60); eGFR For Non-African Americans 57 (> 60)
[2021-10-16] MEDS: Insulin LISPRO 300 UNITS/3 ML VIAL SUBQ SCH ×2 (16:42→20:15)
[2021-10-16] MEDS ORDERED: Clinimix E 5%-15% SOLUTION 2,000 ML IVC SCH (17:00)
[2021-10-16] MEDS ORDERED: Fat Emulsion 250 ML IVPB SCH (17:00)
[2021-10-16] MEDS: Norepinephrine 4 MG/254 ML IV.SOLN IVC SCH (22:51)
[2021-10-17] MEDS: Dexmedetomidine HCl 400 MCG/100 ML MLS IVC SCH ×3 (01:23→21:19)
[2021-10-17 01:33] LABS: Fluid Source for Albumin ASCITES FLUID
[2021-10-17] MEDS: Insulin LISPRO 300 UNITS/3 ML VIAL SUBQ SCH ×7 (01:35→23:50)
[2021-10-17 03:32] LABS: Basophils # 0.1 K/mcL (0.0-0.2); Basophils % 0.6 %; Eosinophils # 0.2 K/mcL (0.0-0.6); Eosinophils % 1.3 %; Hematocrit 33.3 % (37.5-50.1); Hemoglobin 10.6 g/dL (12.9-16.9); Immature Platelets 5.2 % (1.1-6.1); Lymphocytes # 1.5 K/mcL (0.6-4.6); Lymphocytes % 11.7 %; Mean Corpuscular HGB Conc 31.8 g/dL (31.6-35.5); Mean Corpuscular Volume 106.7 fL (83.0-100.0); Mean Platelet Volume 11.7 fL (9.4-12.4); Monocytes # 1.4 K/mcL (0.0-1.3); Monocytes % 11.3 %; Neutrophils # 8.7 K/mcL (1.6-8.9); Nucleated Red Blood Cells 0.2 /100 WBC (0); Red Blood Count 3.12 M/mcL (4.19-5.50); Red Cell Distribution Width 18.4 % (11.5-14.5); Segmented Neutrophils % 70.1 %; White Blood Count 12.4 K/mcL (4.3-11.1)
[2021-10-17 03:33] LABS: Platelet Count 84 K/mcL (140-400)
[2021-10-17 03:48] LABS: BUN/Creatinine Ratio 43 (6-26); Blood Urea Nitrogen 54 mg/dL (8-23); Calcium 8.7 mg/dL (8.6-10.3); Carbon Dioxide 24 mEq/L (23-29); Chloride 118 mEq/L (98-107); Glucose 139 mg/dL (70-105); Osmolality,Calculated 323 (280-300); Potassium 3.8 mEq/L (3.5-5.1); Sodium 148 mEq/L (136-145); eGFR For African Americans > 60 (> 60); eGFR For Non-African Americans 58 (> 60)
[2021-10-17 03:49] LABS: Alanine Aminotransferase 36 Units/L (7-52); Albumin 2.7 g/dL (3.5-5.7); Albumin/Globulin Ratio 0.9 (1.1-2.2); Alkaline Phosphatase 139 Units/L (34-104); Aspartate Amino Transferase 83 Units/L (13-39); BUN/Creatinine Ratio 44 (6-26); Blood Urea Nitrogen 55 mg/dL (8-23); Calcium 8.5 mg/dL (8.6-10.3); Carbon Dioxide 22 mEq/L (23-29); Chloride 116 mEq/L (98-107); Globulin 2.9 g/dL (2.4-3.5); Glucose 139 mg/dL (70-105); Magnesium 2.8 mg/dL (1.6-2.6); Osmolality,Calculated 315 (280-300); Phosphorous 2.6 mg/dL (2.7-4.5); Potassium 3.8 mEq/L (3.5-5.1); Sodium 144 mEq/L (136-145); Total Protein 5.6 g/dL (6.4-8.9); eGFR For African Americans > 60 (> 60); eGFR For Non-African Americans 58 (> 60)
[2021-10-17] MEDS: Cefepime HCl 2,000 MG in 0.9 % Sodium Chloride 10 ML IVP SCH ×2 (04:56→17:18)
[2021-10-17] MEDS: Pantoprazole 40 MG VIAL IVP SCH ×2 (04:56→17:18)
[2021-10-17] MEDS: *HR* Heparin 5,000 UNIT/ML VIAL SQ SCH ×3 (04:57→20:51)
[2021-10-17] MEDS: Budesonide/Formoterol 160/4.5 1 PUFF INH IH SCH ×2 (07:45→20:01)
[2021-10-17] MEDS: Tiotropium 10 INH DOSE IH SCH (07:46)
[2021-10-17] MEDS: MetroNIDAZOLE 500 MG/100 ML 500 MG/100 ML BAG IVPB SCH ×2 (09:10→15:35)
[2021-10-17] MEDS: Docusate Oral Soln 100 MG/10 ML UDC GTUBE SCH ×2 (09:44→20:51)
[2021-10-17] MEDS: Lactulose Oral Soln 20 GM/30 ML UDC PO SCH ×2 (09:44→20:51)
[2021-10-17] MEDS ORDERED: Clinimix E 5%-15% SOLUTION 2,000 ML with MVI, adult with vitamin K 10 ML IVC SCH (17:00)
[2021-10-17 19:04] VITALS: TEMP 98.3
[2021-10-17] MEDS ORDERED: *HR* Metoprolol 5 MG/5 ML VIAL IVP ONE (21:27)
[2021-10-18] MEDS: MetroNIDAZOLE 500 MG/100 ML 500 MG/100 ML BAG IVPB SCH ×2 (00:05→08:33)
[2021-10-18] MEDS: Dexmedetomidine HCl 400 MCG/100 ML MLS IVC SCH ×4 (01:23→10:45)
[2021-10-18] MEDS: Insulin LISPRO 300 UNITS/3 ML VIAL SUBQ SCH ×4 (04:19→15:52)
[2021-10-18] MEDS: Pantoprazole 40 MG VIAL IVP SCH (05:36)
[2021-10-18] MEDS: *HR* Heparin 5,000 UNIT/ML VIAL SQ SCH (05:36)
[2021-10-18] MEDS: Cefepime HCl 2,000 MG in 0.9 % Sodium Chloride 10 ML IVP SCH (05:37)
[2021-10-18 06:02] LABS: Alanine Aminotransferase 36 Units/L (7-52); Albumin 2.4 g/dL (3.5-5.7); Albumin/Globulin Ratio 0.9 (1.1-2.2); Alkaline Phosphatase 132 Units/L (34-104); Aspartate Amino Transferase 90 Units/L (13-39); BUN/Creatinine Ratio 41 (6-26); Bilirubin,Total 2.7 mg/dL (0.3-1.0); Blood Urea Nitrogen 49 mg/dL (8-23); Calcium 8.2 mg/dL (8.6-10.3); Carbon Dioxide 25 mEq/L (23-29); Chloride 121 mEq/L (98-107); Globulin 2.8 g/dL (2.4-3.5); Glucose 116 mg/dL (70-105); Magnesium 2.7 mg/dL (1.6-2.6); Osmolality,Calculated 324 (280-300); Phosphorous 2.9 mg/dL (2.7-4.5); Potassium 3.7 mEq/L (3.5-5.1); Sodium 150 mEq/L (136-145); Total Protein 5.2 g/dL (6.4-8.9); eGFR For African Americans > 60 (> 60); eGFR For Non-African Americans > 60 (> 60)
[2021-10-18] MEDS: Tiotropium 10 INH DOSE IH SCH (07:48)
[2021-10-18] MEDS: Budesonide/Formoterol 160/4.5 1 PUFF INH IH SCH (07:48)
[2021-10-18] MEDS ORDERED: *HR* LORazepam 2 MG/ML VIAL IVP ONE (08:24)
[2021-10-18] MEDS: Lactulose Oral Soln 20 GM/30 ML UDC PO SCH (08:33)
[2021-10-18] MEDS: Docusate Oral Soln 100 MG/10 ML UDC GTUBE SCH (08:33)
[2021-10-18] MEDS ORDERED: Haloperidol Lactate 5 MG/ML VIAL IVP ONE (08:39)
[2021-10-18] MEDS: Morphine Sulfate Oral CONC 10 MG/0.5 ML ORAL.SYG SL PRN ×2 (12:37→17:12)
[2021-10-18 15:45] VITALS: BP 88/51; PULSE 75; O2SAT 92
[2021-10-18] MEDS ORDERED: Clinimix E 5%-15% SOLUTION 2,000 ML IVC SCH (17:00)
[2021-10-19] MEDS ORDERED: Clinimix E 5%-15% SOLUTION 2,000 ML IVC SCH (17:00)
[2021-10-19] MEDS ORDERED: Clinimix E 5%-15% SOLUTION 2,000 ML with MVI, adult with vitamin K 10 ML IVC SCH (17:00)
== END 2021-10-18 17:15 | disposition hospice, home (50) | DRG 432 ==
LOC: 3BNU 11:01 → EMEROOARM 11:01 → SUATTDRO 14:14 → 3BNU 15:19 → 2NNU 10-11 01:58 → ICNU 10-15 16:37
PROVIDERS: ADMIT Family Medicine; ATTEND Internal Medicine